=== PATIENT | male | born 1975 | race Caucasian/White ===

== ENCOUNTER 2021-06-15 16:55 | Emergency (ER) | payer OTHER, SELFPAY ==
--- NOTE | ~2021-06-15 | XR_ITS ---
EXAMINATION: XR finger 3rd RT min 2V DATE: 06/15/2021 18:18 INDICATION: Right hand third digit pain and swelling. TECHNIQUE: 4 views of right hand third digit were obtained. COMPARISON: None. FINDINGS: Bone alignment is normal. There are 2 bone fragments at palmar aspect of third proximal int erphalangeal joint. Joint spaces are normal. There is soft tissue swelling of the proximal third digi t. IMPRESSION: 1. Two bone fragments of palmar aspect of third proximal interphalangeal joint, which may be chronic. Fracture is not excluded. Reviewed, dictated and finalized at location A. [facility]
[2021-06-15 17:58] VITALS: BP 142/89; PULSE 86; RESP 16; TEMP 36.3; O2SAT 100
--- NOTE | 2021-06-15 18:47 | ED.GENADULT ---
HPI - General Adult General Chief complaint: Extremity Injury, Upper Stated complaint: rt middle finger inj Source: patient Mode of arrival: ambulatory Limitations: no limitations History of Present Illness HPI narrative: Patient presents for evaluation of swelling and bruising in the third digit of the right hand. Symptom onset last night. He was walking down some steps at his [id number] home when he slipped and landed with his arms outstretched. He developed some swelling thereafter and bruising today. He states that he does not have pain at rest but only when he bumps his hand into something. At rest he feels a heavy sensation. He reports decreased range of motion secondary to swelling he denies any paresthesias. He is right-hand dominant. He has been taking ibuprofen for his symptoms. Related Data Home Medications Medication Instructions Recorded Confirmed alprazolam 0.25 mg PO BID PRN 06/15/21 06/15/21 Allergies Allergy/AdvReac Type Severity Reaction Status Date / Time No Known Allergies Allergy Verified 06/15/21 17:57 Review of Systems Review of Systems: CONSTITUTIONAL: Denies fever, chills, or sweats. EYES: Denies visual changes, redness, or discharge. ENT: Denies rhinorrhea, congestion, sore throat, or otalgia. CARDIOVASCULAR: Denies chest pain, palpitations, or edema. RESPIRATORY: Denies cough or dyspnea. GASTROINTESTINAL: Denies abdominal pain, nausea, vomiting, or diarrhea. GENITOURINARY: Denies dysuria or hematuria. SKIN: Reports bruising to the third digit of the right hand. Denies rash or itching. MUSCULOSKELETAL: Reports pain and swelling to the third digit of the right hand NEUROLOGIC: Denies headache, numbness, dizziness, or weakness. PSYCHIATRIC: Denies anxiety or depression. [facility] Past Medical History Medical History (Updated 06/15/21 @ 18:52 by PARMJIT Paiz, APOORVA) Anxiety Surgical History Surgical History S/P arthroscopic surgery of left knee Status post arthroscopic surgery of right knee Family History Family History Mother No pertinent past medical history Social History Social History Smoking status: Never smoker Alcohol intake: current Alcohol use details: Social Substance use: never Living arrangements: with family Gender identity (if verbalized by the patient): Male Sexual Orientation (if Verbalized by the Patient): Straight or Heterosexual Spiritual care concerns: No Exam Narrative: GENERAL: Well-appearing, well-nourished, and in no acute distress. HEAD: Normocephalic, atraumatic. EYES: PERRLA and EOMI. ENT: Nares clear, no rhinorrhea or epistaxis. Mucous membranes moist. Oropharynx without tonsillar hypertrophy exudate or other lesions. Bilateral TMs pearly sanchez nonbulging NECK: Supple. No adenopathy or masses. No carotid bruits or JVD CHEST: Clear to auscultation. No respiratory distress. No wheezes rales or rhonchi HEART: Regular rate and rhythm. No murmur heard. Normal peripheral pulses. ABDOMEN: Soft, nontender, nondistended, normal active bowel sounds. EXTREMITIES: Soft tissue swelling noted throughout the third digit of the right hand. There is tenderness in the PIP joint of the third digit of the right hand. There is limited range of motion of the third digit of the right hand at MCP, the PIP and DIP joints secondary to swelling SKIN: Ecchymosis to palmar aspect of the proximal phalanx of the third digit of the right hand NEURO: No focal deficits. Alert and oriented x3. PSYCH: Normal mood and affect. Course Course Emergency Course: This is a 46-year-old male who presents with swelling and bruising to the third digit of the right hand after a fall at home last night. X-ray shows fracture of the proximal phalanx of that digit. He was placed in the
[2021-06-15] MEDS: KETOROLAC (*BKC) 60 MG/2 ML VIAL IM (19:01)
== END 2021-06-15 19:31 | disposition home or self-care (01) ==
PROVIDERS: Emergency Provider Nurse Practitioner; PCP Internal Medicine
DX: S62.642A Nondisplaced fracture of proximal phalanx of right middle finger, initial encounter for closed fracture (principal); W10.9XXA Fall (on) (from) unspecified stairs and steps, initial encounter; F41.9 Anxiety disorder, unspecified
CPT/HCPCS: 29130; 73140; 96372; 99213; G0463; J1885